=== PATIENT | female | born 1975 | race Caucasian/White ===

== ENCOUNTER 2024-11-28 22:24 | Emergency (ER) | payer MEDICAID ==
[~2024-11-28] VITALS: Ht 162.6 cm; Wt 80.0 kg
[~2024-11-28 22:24] MED LIST: GABAPENTIN; PREG150C PO
[2024-11-28 22:27] VITALS: O2SAT 100
[2024-11-28 23:25] LABS: BASOPHILS % 0.8 % (0.0-2.0); EOSINOPHILS % 1.9 % (0.0-5.0); MEAN CORPUSCULAR HEMOGLOBIN 29.5 pg (28.0-32.0); MEAN CORPUSCULAR HGB CONC 33.4 g/dL (31.0-37.0); MEAN CORPUSCULAR VOLUME 88.3 fL (81.0-99.0); MEAN PLATELET VOLUME 9.2 fl (7.4-10.4); NEUTROPHILS % 70.3 % (40.0-76.0); PLATELET 305 x1000/uL (130-400); RED BLOOD CELL COUNT 4.08 mill/uL (4.2-5.4); RED CELL DISTRIBUTION WIDTH 16.1 % (11.6-14.6); WHITE BLOOD COUNT 10.1 x1000/uL (4.5-11.0)
[2024-11-28 23:47] LABS: CHLORIDE 107 mEq/L (98-107); POTASSIUM 3.8 mEq/L (3.5-5.1); SODIUM 141 mEq/L (136-145)
[2024-11-28 23:48] LABS: CALCIUM 9.8 mg/dL (8.7-10.4); CARBON DIOXIDE 26 mEq/L (21-32)
[2024-11-28 23:53] LABS: CREATININE 0.7 mg/dL (0.6-1.0); GLUCOSE 86 mg/dL (70-105); UREA NITROGEN BLOOD 7 mg/dL (9-23)
[2024-11-29 00:32] LABS: TROPONIN I HIGH SENSITIVITY < 4 ng/L (3.0-34)
[2024-11-29] MEDS ORDERED: ATROV IH (03:50)
[2024-11-29 04:08] VITALS: BP 106/53; PULSE 69; RESP 16; TEMP 36.8; O2SAT 100
== END 2024-11-29 04:11 | disposition home or self-care (01) ==
LOC: ER 22:24
DX: R06.02 Shortness of breath (principal); J45.909 Unspecified asthma, uncomplicated; F41.9 Anxiety disorder, unspecified; Z79.899 Other long term (current) drug therapy
CPT/HCPCS: 36415; 71045; 80048; 84484; 85025; 93005; 99285

== ENCOUNTER 2025-04-11 19:24 | Emergency (ER) | payer MEDICAID ==
[~2025-04-11] VITALS: Ht 162.6 cm; Wt 87.0 kg
[~2025-04-11 19:24] MED LIST changes: +ATROV IH
[2025-04-11 19:30] VITALS: O2SAT 100
[2025-04-11 20:10] LABS: BASOPHILS % 1.2 % (0.0-2.0); EOSINOPHILS % 3.3 % (0.0-5.0); HEMATOCRIT. 38.2 % (36.0-48.0); HEMOGLOBIN. 12.7 g/dL (12.0-16.0); LYMPHOCYTES % 35.0 % (20.0-50.0); MEAN PLATELET VOLUME 9.8 fl (7.4-10.4); MONOCYTES % 7.2 % (2.0-8.0); NEUTROPHILS % 53.3 % (40.0-76.0); PLATELET 261 x1000/uL (130-400); RED BLOOD CELL COUNT 4.26 mill/uL (4.2-5.4); RED CELL DISTRIBUTION WIDTH 14.9 % (11.6-14.6)
[2025-04-11 20:24] LABS: CREATININE 0.9 mg/dL (0.6-1.0); UREA NITROGEN BLOOD 10 mg/dL (9-23)
[2025-04-11 20:31] LABS: ETHANOL BLOOD < 10 mg/dL (<10)
[2025-04-11 20:49] LABS: HCG SCREEN NEGATIVE
[2025-04-11 23:55] VITALS: BP 153/74; PULSE 72; RESP 18; TEMP 36.8; O2SAT 98
== END 2025-04-11 23:55 | disposition home or self-care (01) ==
LOC: ER 19:24
DX: F31.9 Bipolar disorder, unspecified (principal); J45.909 Unspecified asthma, uncomplicated; F41.9 Anxiety disorder, unspecified; F20.9 Schizophrenia, unspecified; Z79.899 Other long term (current) drug therapy; Z20.822 Contact with and (suspected) exposure to COVID-19
CPT/HCPCS: 36415; 80048; 80307; 80320; 80329; 84703; 85025; 87426; 99283; G0480